=== PATIENT | male | born 1985 | race African-American/Black ===

== ENCOUNTER 2022-07-02 14:28 | Emergency (ER) | payer MEDICAID, OTHER ==
[~2022-07-02] VITALS: Ht 170.2 cm; Wt 113.4 kg
[2022-07-02] MEDS ORDERED: cloNIDine HCL 0.1 MG TAB PO ONE (15:45)
[2022-07-02] MEDS ORDERED: CEPH-510 PO (19:10)
[2022-07-02] MEDS ORDERED: CLIN300C8 PO (19:10)
[2022-07-02] MEDS ORDERED: NAP500T PO (19:10)
[2022-07-02] MEDS ORDERED: KETOROLAC TROMETH 60MG/2ML VIAL IM ONE (19:15)
[2022-07-02] MEDS ORDERED: TETANUS-DIPTH-ACEL PERTUSSIS 0.5ML SYR Tdap IM ONE (19:15)
[2022-07-02] MEDS ORDERED: cefTRIAXone SOD 1,000 MG VL IM ONE (19:15)
[2022-07-02 19:19] VITALS: BP 158/101
== END 2022-07-02 19:10 | disposition home or self-care (01) ==
LOC: ER 14:28
DX: L03.111 Cellulitis of right axilla (principal)
CPT/HCPCS: 90471; 90715; 96372; 99284; J0696; J1885